=== PATIENT | female | born 1985 | race Caucasian/White ===

== ENCOUNTER 2016-07-29 10:39 | Emergency (ER) | payer OTHER ==
--- NOTE | 2016-07-29 11:22 | EDDOCDS ---
Nurse's Notes [facility] Name: Gladys Gomez Age: 31 yrs Sex: Female : 1985 Arrival Date: 07/29/2016 Time: 10:39 Bed D1 Private MD: MICHAEL Baez Diagnosis: Streptococcal pharyngitis Presentation: 07/29 10:45 Presenting complaint: Patient states: my son was diagnosed with the flu last week and ead my family and I were put on Tamiflu (started on 07/23/16). Mother reports sore throat and cough since Friday. Risk factors: Stridor is not present. Drooling is not present. Shortness of breath is not present. Cellulitis is not present. Adult Sepsis Screening: The patient does not have new or worsening altered mentation. Patient's respiratory rate is less than 22. Systolic blood pressure is greater than 100. Patient has a qSOFA score of 0- Negative Sepsis Screen. Suicide/Homicide risk assessment- the patient denies having any suicidal and/or homicidal ideations and does not present with any other emotional, behavioral or mental health complaints. Status: The patient is a dependent. Transition of care: patient was not received from another setting of care. 10:45 Acuity: YAEL Level 3 ead 10:45 Method Of Arrival: Walkin/Carried/Asstd ead Triage Assessment: 10:48 General: Appears in no apparent distress, comfortable, Behavior is appropriate for age, ead cooperative, pleasant. Pain: Pain currently is 8 out of 10 on a pain scale. EENT: Reports pain in throat when swallowing. Respiratory: Reports cough that is. Derm: Skin is pink, warm & dry. 11:16 Pt Declines HIV testing. 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 Tamiflu 75 mg Oral cap once daily 2. methylphenidate 20 mg Oral tab 2 times per day 3. venlafaxine 75 mg oral tab once a day 4. modafinil 100 mg oral tab once daily - PMHx: Narcolepsy; - PSHx: none; - Social history: Smoking status: Patient states was never smoker of tobacco. No barriers to communication noted, The patient speaks fluent Thai, Speaks appropriately for age. - Family history: Not pertinent. - : The pt / caregiver states he / she is not on anticoagulants. Home medication list is obtained from the patient. - Exposure Risk Screening:: None identified. Screenin:14 Screening information is obtained from the patient. Fall risk: No risks identified. js13 Assistance ADL's: requires no assistance with activities of daily living. Abuse/DV Screen: The patient / caregiver reports he/she is: not in a situation that causes fear, pain or injury. Nutritional screening: No deficits noted. Advance Directives: There is no active DNR order. home support is adequate. Assessment: 11:14 General: Appears in no apparent distress. Neurological: Level of Consciousness is js13 awake, alert. EENT: Throat is reddened. Respiratory: Airway is patent Respiratory effort is even, unlabored, Respiratory pattern is regular, symmetrical. Derm: Skin is pink, warm & dry. Vital Signs: 10:41 BP 107 / 74; Pulse 88; Resp 18; Temp 96.1(O); Pulse Ox 100% on R/A; Weight 49.9 kg (M); ct3 Height 5 ft. 4 in. (162.56 cm) (R); Pain 5/10; 10:41 Body Mass Index 18.88 (49.90 kg, 162.56 cm) ct3 Vitals: 10:41 Log In Time: July 29, 2016 at 10:32. ct3 11:01 Strep Screen is obtained and tested: Positive. ml6 ED Course: 10:40 Patient visited by Magy Linton PCA. ct3 10:40 Patient moved to Waiting ct3 10:41 [facility] is Private Physician. ct3 10:42 Patient moved to Pre RCE ct3 10:46 Triage Initiated ead 10:50 Patient moved to D1 ead 10:51 [facility] cc10 10:51 Miriam Woodruff MD is Attending Physician. cc10 11:08 Patient visited by Edison Brewer PA-C. cc10 11:08 Patient visited by Edison Brewer PA-C. cc10 11:12 MICHAEL Baez is Referral Physician. cc10 11:14 The patient / caregiver is instructed regarding the plan of care and ED course. js13 11:14 No IV's were initiated during this patient's visit. No procedures done that require js13 assistance. Order Results: There are currently no results for this order. Outcome: 11:12 Discharge ordered by Provider. cc10 11:14 Discharge Assessment: Patient awake, alert and oriented x 3. No cognitive and/or js13 functional deficits noted. Patient verbalized understanding of disposition instructions. patient administered narcotics - no. The following High Risk Discharge criteria are identified: None. Discharged to home ambulatory. Condition: stable. Discharge instructions given to patient, Instructed on discharge instructions, follow up and referral plans. medication usage, Demonstrated understanding of instructions, medications, Pt was receptive of discharge instructions/ teaching. Prescriptions given X 2. No special radiology studies were completed. Property :Personal belongings accompany Pt. 11:21 Patient left the ED. js13 Signatures: Jared Villagran, RN RN ml6 Magy Linton, SCARF GLUER SCARF GLUER ct3 Corry SchneiderRN RN js13 Charley Bosch,RN RN Edison Goins, PA-Jamey PA-C cc10 BRIANNE
--- NOTE | 2016-07-29 11:22 | EDDOCDS ---
Physician Documentation [facility] Name: Gladys Gomez Age: 31 yrs Sex: Female : 1985 Arrival Date: 07/29/2016 Time: 10:39 Bed D1 Private MD: MICHAEL Baez Disposition: 07/29/16 11:12 Discharged to Home/Self Care. Impression: Streptococcal pharyngitis. - Condition is Stable. - Discharge Instructions: Strep Throat. - Prescriptions for lidocaine HCl 2 % Mucous Membrane solution - take 15 milliliter by ORAL route every 3 hours As needed swish, gargle and spit; 200 milliliter. Amoxicillin 875 mg Oral Tablet - take 1 tablet by ORAL route every 12 hours for 10 days; 20 tablet. - Medication Reconciliation form. - Follow up: MICHAEL Baez; When: Call to arrange an appointment; Reason: Wound/Symptom Recheck, Recheck today's complaints, Worsening of conditions, Continuance of care. - Problem is an ongoing problem. - Symptoms are unchanged. Historical: - Allergies: peanuts; - Home Meds: 1. Tamiflu 75 mg Oral cap once daily 2. methylphenidate 20 mg Oral tab 2 times per day 3. venlafaxine 75 mg oral tab once a day 4. modafinil 100 mg oral tab once daily - PMHx: Narcolepsy; - PSHx: none; - Social history: Smoking status: Patient states was never smoker of tobacco. No barriers to communication noted, The patient speaks fluent Cypriot, Speaks appropriately for age. - Family history: Not pertinent. - : The pt / caregiver states he / she is not on anticoagulants. Home medication list is obtained from the patient. - Exposure Risk Screening:: None identified. 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 4 in. (162.56 cm) (R); Pain 5/10; 10:41 Body Mass Index 18.88 (49.90 kg, 162.56 cm) ct3 MDM: 10:52 Strep Screen, Nursing ordered. cc10 11:20 Financial registration complete. ak Signatures: Corry SchneiderRN RN js13 Charley Bosch RN RN ead [place], Colin, PAUL MILLER cc10 Angelica Magallon ak MTDD
--- NOTE | 2016-07-31 12:22 | EDDOCDS ---
Physician Documentation [facility] Name: Gladys Gomez Age: 31 yrs Sex: Female : 1985 Arrival Date: 07/29/2016 Time: 10:39 Bed D1 Private MD: MICHAEL Baez Disposition: 07/29/16 11:12 Discharged to Home/Self Care. Impression: Streptococcal pharyngitis. - Condition is Stable. - Discharge Instructions: Strep Throat. - Prescriptions for lidocaine HCl 2 % Mucous Membrane solution - take 15 milliliter by ORAL route every 3 hours As needed swish, gargle and spit; 200 milliliter. Amoxicillin 875 mg Oral Tablet - take 1 tablet by ORAL route every 12 hours for 10 days; 20 tablet. - Medication Reconciliation form. - Follow up: MICHAEL Baez; When: Call to arrange an appointment; Reason: Wound/Symptom Recheck, Recheck today's complaints, Worsening of conditions, Continuance of care. - Problem is an ongoing problem. - Symptoms are unchanged. Historical: - Allergies: peanuts; - Home Meds: 1. Tamiflu 75 mg Oral cap once daily 2. methylphenidate 20 mg Oral tab 2 times per day 3. venlafaxine 75 mg oral tab once a day 4. modafinil 100 mg oral tab once daily - PMHx: Narcolepsy; - PSHx: none; - Social history: Smoking status: Patient states was never smoker of tobacco. No barriers to communication noted, The patient speaks fluent Libyan, Speaks appropriately for age. - Family history: Not pertinent. - : The pt / caregiver states he / she is not on anticoagulants. Home medication list is obtained from the patient. - Exposure Risk Screening:: None identified. 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 4 in. (162.56 cm) (R); Pain 5/10; 10:41 Body Mass Index 18.88 (49.90 kg, 162.56 cm) ct3 MDM: 10:52 Strep Screen, Nursing ordered. cc10 11:20 Financial registration complete. az 13:25 T-Sheet-- Draft Copy was scanned into [employer] and attached to record. klr 13:27 [facility] Payment Agreement was scanned into [employer] and attached to record. az Signatures: Corry Schneider,RN RN js13 Charley BoschRN RN Edison Goins, PAEstivenC PA-C cc10 Angelica Magallon [place] Roselyn Marlow The chart was reviewed and I authenticate all verbal orders and agree with the evaluation and treatment provided.Attachments: 13:25 T-Sheet-- Draft Copy klr 13:27 [facility] Payment Agreement az Chart Complete MTDD
--- NOTE | 2016-07-31 12:22 | EDDOCDS ---
Nurse's Notes [facility] Name: Gladys Gomez Age: 31 yrs Sex: Female : 1985 Arrival Date: 07/29/2016 Time: 10:39 Bed D1 Private MD: MICHAEL Baez Diagnosis: Streptococcal pharyngitis Presentation: 07/29 10:45 Presenting complaint: Patient states: my son was diagnosed with the flu last week and ead my family and I were put on Tamiflu (started on 07/23/16). Mother reports sore throat and cough since Friday. Risk factors: Stridor is not present. Drooling is not present. Shortness of breath is not present. Cellulitis is not present. Adult Sepsis Screening: The patient does not have new or worsening altered mentation. Patient's respiratory rate is less than 22. Systolic blood pressure is greater than 100. Patient has a qSOFA score of 0- Negative Sepsis Screen. Suicide/Homicide risk assessment- the patient denies having any suicidal and/or homicidal ideations and does not present with any other emotional, behavioral or mental health complaints. Status: The patient is a dependent. Transition of care: patient was not received from another setting of care. 10:45 Acuity: YAEL Level 3 ead 10:45 Method Of Arrival: Walkin/Carried/Asstd ead Triage Assessment: 10:48 General: Appears in no apparent distress, comfortable, Behavior is appropriate for age, ead cooperative, pleasant. Pain: Pain currently is 8 out of 10 on a pain scale. EENT: Reports pain in throat when swallowing. Respiratory: Reports cough that is. Derm: Skin is pink, warm & dry. 11:16 Pt Declines HIV testing. 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 Tamiflu 75 mg Oral cap once daily 2. methylphenidate 20 mg Oral tab 2 times per day 3. venlafaxine 75 mg oral tab once a day 4. modafinil 100 mg oral tab once daily - PMHx: Narcolepsy; - PSHx: none; - Social history: Smoking status: Patient states was never smoker of tobacco. No barriers to communication noted, The patient speaks fluent Emirati, Speaks appropriately for age. - Family history: Not pertinent. - : The pt / caregiver states he / she is not on anticoagulants. Home medication list is obtained from the patient. - Exposure Risk Screening:: None identified. Screenin:14 Screening information is obtained from the patient. Fall risk: No risks identified. js13 Assistance ADL's: requires no assistance with activities of daily living. Abuse/DV Screen: The patient / caregiver reports he/she is: not in a situation that causes fear, pain or injury. Nutritional screening: No deficits noted. Advance Directives: There is no active DNR order. home support is adequate. Assessment: 11:14 General: Appears in no apparent distress. Neurological: Level of Consciousness is js13 awake, alert. EENT: Throat is reddened. Respiratory: Airway is patent Respiratory effort is even, unlabored, Respiratory pattern is regular, symmetrical. Derm: Skin is pink, warm & dry. Vital Signs: 10:41 BP 107 / 74; Pulse 88; Resp 18; Temp 96.1(O); Pulse Ox 100% on R/A; Weight 49.9 kg (M); ct3 Height 5 ft. 4 in. (162.56 cm) (R); Pain 5/10; 10:41 Body Mass Index 18.88 (49.90 kg, 162.56 cm) ct3 Vitals: 10:41 Log In Time: July 29, 2016 at 10:32. ct3 11:01 Strep Screen is obtained and tested: Positive. ml6 ED Course: 10:40 Patient visited by Magy Linton PCA. ct3 10:40 Patient moved to Waiting ct3 10:41 [facility] Private Physician. ct3 10:42 Patient moved to Pre RCE ct3 10:46 Triage Initiated ead 10:50 Patient moved to D1 ead 10:51 [facility] cc[facility] 10:51 Miriam Woodruff MD is Attending Physician. cc10 11:08 Patient visited by Edison Brewer PA-C. cc10 11:08 Patient visited by Edison Brewer PA-C. cc10 11:12 MICHAEL Baez is Referral Physician. cc10 11:14 The patient / caregiver is instructed regarding the plan of care and ED course. js13 11:14 No IV's were initiated during this patient's visit. No procedures done that require js13 assistance. 13:25 T-Sheet-- Draft Copy was scanned into [employer] and attached to record. uche 13:27 [facility] Payment Agreement was scanned into [employer] and attached to record. id Order Results: There are currently no results for this order. Outcome: 11:12 Discharge ordered by Provider. cc10 11:14 Discharge Assessment: Patient awake, alert and oriented x 3. No cognitive and/or js13 functional deficits noted. Patient verbalized understanding of disposition instructions. patient administered narcotics - no. The following High Risk Discharge criteria are identified: None. Discharged to home ambulatory. Condition: stable. Discharge instructions given to patient, Instructed on discharge instructions, follow up and referral plans. medication usage, Demonstrated understanding of instructions, medications, Pt was receptive of discharge instructions/ teaching. Prescriptions given X 2. No special radiology studies were completed. Property :Personal belongings accompany Pt. 11:21 Patient left the ED. js13 Signatures: Jared Villagran, RN RN ml6 Magy Linton, MANAGER REQUIREMENTS MANAGER REQUIREMENTS ct3 Corry SchneiderRN RN js13 Charley Bosch,RN RN Edison Goins PAMarifer PA-Jamey cc10 Angelica Magallon Kathie klr Chart Complete MTDD
--- NOTE | 2016-07-31 12:22 | EDDOCDS ---
Physician Documentation [facility] Name: Gladys Gomez Age: 31 yrs Sex: Female : 1985 Arrival Date: 07/29/2016 Time: 10:39 Bed D1 Private MD: MICHAEL Baez Disposition: 07/29/16 11:12 Discharged to Home/Self Care. Impression: Streptococcal pharyngitis. - Condition is Stable. - Discharge Instructions: Strep Throat. - Prescriptions for lidocaine HCl 2 % Mucous Membrane solution - take 15 milliliter by ORAL route every 3 hours As needed swish, gargle and spit; 200 milliliter. Amoxicillin 875 mg Oral Tablet - take 1 tablet by ORAL route every 12 hours for 10 days; 20 tablet. - Medication Reconciliation form. - Follow up: MICHAEL Baez; When: Call to arrange an appointment; Reason: Wound/Symptom Recheck, Recheck today's complaints, Worsening of conditions, Continuance of care. - Problem is an ongoing problem. - Symptoms are unchanged. Historical: - Allergies: peanuts; - Home Meds: 1. Tamiflu 75 mg Oral cap once daily 2. methylphenidate 20 mg Oral tab 2 times per day 3. venlafaxine 75 mg oral tab once a day 4. modafinil 100 mg oral tab once daily - PMHx: Narcolepsy; - PSHx: none; - Social history: Smoking status: Patient states was never smoker of tobacco. No barriers to communication noted, The patient speaks fluent [place], Speaks appropriately for age. - Family history: Not pertinent. - : The pt / caregiver states he / she is not on anticoagulants. Home medication list is obtained from the patient. - Exposure Risk Screening:: None identified. 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 4 in. (162.56 cm) (R); Pain 5/10; 10:41 Body Mass Index 18.88 (49.90 kg, 162.56 cm) ct3 MDM: 10:52 Strep Screen, Nursing ordered. cc10 11:20 Financial registration complete. az 13:25 T-Sheet-- Draft Copy was scanned into [employer] and attached to record. klr 13:27 [facility] Payment Agreement was scanned into [employer] and attached to record. az Signatures: Corry Schneider,RN RN js13 Charley BoschRN RN Edison Goins, PAEstivenC PA-C cc10 Angelica Magallon [place] Roselyn Marlow The chart was reviewed and I authenticate all verbal orders and agree with the evaluation and treatment provided.Attachments: 13:25 T-Sheet-- Draft Copy klr 13:27 [facility] Payment Agreement az Chart Complete MTDD
== END 2016-07-29 11:21 | disposition home or self-care (01) ==
LOC: M ED 10:39
DX: J02.0 Streptococcal pharyngitis (principal); G47.419 Narcolepsy without cataplexy; Z79.899 Other long term (current) drug therapy; Z91.010 Allergy to peanuts

== ENCOUNTER 2016-10-21 12:29 | Emergency (ER) | payer OTHER ==
[~2016-10-21] VITALS: Ht 162.6 cm; Wt 49.4 kg
[2016-10-21 12:30] VITALS: BP 127/86
[2016-10-21] MEDS ORDERED: PROV100T4 PO (12:37)
[2016-10-21] MEDS ORDERED: RITA20TA PO (12:37)
[2016-10-21] MEDS ORDERED: EFFE75CA75 PO (12:38)
[2016-10-21] MEDS ORDERED: NAPR500T2 PO (12:55)
[2016-10-21] MEDS ORDERED: OSEL75CA PO (12:55)
== END 2016-10-21 13:11 | disposition home or self-care (01) ==
LOC: M ED 13:02
DX: J06.9 Acute upper respiratory infection, unspecified (principal); F32.9 Major depressive disorder, single episode, unspecified; G47.419 Narcolepsy without cataplexy; Z79.899 Other long term (current) drug therapy

== ENCOUNTER 2016-10-23 19:24 | Emergency (ER) | payer OTHER ==
[~2016-10-23] VITALS: Ht 162.6 cm; Wt 46.4 kg
[~2016-10-23 19:24] MED LIST: EFFE75CA75 PO; NAPR500T2 PO; OSEL75CA PO; PROV100T4 PO; RITA20TA PO
[2016-10-23 19:25] VITALS: BP 112/64
[2016-10-23] MEDS ORDERED: KETOROLAC 60 MG/2 ML VIAL (J1885) IM ONE (20:30)
[2016-10-23] MEDS ORDERED: KETO10TAB PO (20:35)
--- NOTE | 2016-10-23 21:56 | ECGEPIP ---
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 RBBB POSSIBLE LEFT ATRIAL ENLARGEMENT BORDERLINE RIGHT AXIS DEVIATION NO PRIORS Electronically Signed On 10-23-2016 21:55:43 EDT by Martin Gusman
--- NOTE | 2016-10-24 02:10 | REP ---
Clinical: Chest pain . Comparison: None . Technique: PA and lateral. Findings: The mediastinum and cardiac silhouette are normal. The lung trivedi are clear and without acute consolidation, effusion, or pneumothorax. The skeletal structures are intact and normal. Impression: 1. No acute cardiopulmonary process. Signed by Roel Wyman MD 10/24/2016 02:02 A
== END 2016-10-23 20:55 | disposition home or self-care (01) ==
LOC: M ED 20:09
DX: J10.1 Influenza due to other identified influenza virus with other respiratory manifestations (principal); F32.9 Major depressive disorder, single episode, unspecified; F41.9 Anxiety disorder, unspecified; Z79.899 Other long term (current) drug therapy
CPT/HCPCS: 71020; 93005; 96372; 99282; J1885

== ENCOUNTER → 2017-04-09 | Outpatient (REF) | payer OTHER ==
[~2017-04-09] MED LIST changes: +KETO10TAB PO; -NAPR500T2 PO; +NAPR500T3 PO; +PROV100T25 PO; -PROV100T4 PO
[2017-04-09 20:00] LABS: BASO % 0.4 % (0.0-1.0); EOS % 0.4 % (0.0-3.0); IMMATURE GRANULOCYTE % 0.1 % (0-0); LYMPH # 1.8 10^3/uL (1.5-4.5); LYMPH % 25.9 % (24.0-44.0); MEAN CORPUSCULAR HEMOGLOBIN 31.3 pg (27.0-33.0); MEAN CORPUSCULAR HGB CONC 32.9 g/dl (32.0-36.5); MONO # 0.5 10^3/uL (0.0-0.8); MONO % 6.8 % (0.0-5.0); NEUTROPHILS # 4.5 10^3/uL (1.8-7.7); NEUTROPHILS % 66.4 % (36.0-66.0); PLATELET COUNT, AUTOMATED 277 10^3/uL (150-450); RED CELL DISTRIBUTION WIDTH 12.8 % (11.5-14.5); WHITE BLOOD COUNT 6.8 10^3/uL (4.0-10.0)
[2017-04-09 20:31] LABS: FOLATE > 24.0 NG/ML (>5.4); VITAMIN B12 LEVEL 1432 PG/ML (247-911)
[2017-04-09 20:34] LABS: ALBUMIN 3.9 GM/DL (3.2-5.2); ALBUMIN/GLOBULIN RATIO 1.22 (1.00-1.93); ALKALINE PHOSPHATASE 72 U/L (45-117); ALT/SGPT 27 U/L (12-78); ANION GAP 4 MEQ/L (8-16); AST/SGOT 16 U/L (15-37); BILIRUBIN,TOTAL 0.3 MG/DL (0.2-1.0); BLOOD UREA NITROGEN 9 MG/DL (7-18); CARBON DIOXIDE LEVEL 33 MEQ/L (21-32); CHLORIDE LEVEL 100 MEQ/L (98-107); GLOMERULAR FILTRATION RATE > 60.0 (>60); GLUCOSE, FASTING 85 MG/DL (70-105); POTASSIUM SERUM 3.7 MEQ/L (3.5-5.1); SODIUM LEVEL 137 MEQ/L (136-145); TOTAL PROTEIN 7.1 GM/DL (6.4-8.2)
[2017-04-09 20:40] LABS: ERYTHROCYTE SEDIMENTATION RATE 5 mm/hr (0-20)
[2017-04-14 14:21] LABS: VITAMIN E LEVEL 11.1 mg/L (5.3-16.8)
== END ==
LOC: M LABNEURO 13:04
PROVIDERS: ATTEND Psychiatry & Neurology Neurology
DX: R53.83 Other fatigue (principal); R68.3 Clubbing of fingers

== ENCOUNTER → 2017-06-14 | Outpatient (REF) | payer OTHER | LOC: M SFHCLERA 11:14 | PROVIDERS: ATTEND Physician Assistant | DX: J02.9 Acute pharyngitis, unspecified (principal) ==

== ENCOUNTER → 2018-12-06 | Outpatient (CLI) | payer OTHER ==
[~2018-12-06] MED LIST changes: +EFFE75CA2 PO; -EFFE75CA75 PO; +NAPR-885 PO; -NAPR500T3 PO
--- NOTE | 2018-12-07 07:39 | REP ---
LEFT FIFTH TOE: Four views of the left 5th toe are performed. There is soft tissue swelling adjacent to the 5th metatarsophalangeal joint. There is no evidence of acute fracture, dislocation or intrinsic bone disease. Electronically Signed by Rubin Hsu MD 12/07/2018 08:35 A
== END ==
LOC: M WUC 09:01
PROVIDERS: ATTEND Physician Assistant
DX: S90.122A Contusion of left lesser toe(s) without damage to nail, initial encounter (principal); W18.30XA Fall on same level, unspecified, initial encounter; Y92.009 Unspecified place in unspecified non-institutional (private) residence as the place of occurrence of the external cause